=== PATIENT | female | born 1950 | race Caucasian/White ===

== ENCOUNTER → 2024-05-06 14:18 | Outpatient (CLI) | payer MEDICARE, SELFPAY ==
--- NOTE | 2024-05-06 14:20 | DI.RAD.S_ITS ---
PROCEDURE: XR DEXA AXIAL SKELETON INDICATIONS: Screening for osteoporosis COMPARISON: None. FINDINGS: Lumbar Spine: Bone mineral density 0.966 g/cm2, T score -0.7, normal bone mineral density. Left Femoral Neck: Bone mineral density 0.735 g/cm2, T score -1, borderline osteopenia. Right Femoral Neck: Bone mineral density 0.748 g/cm2, T score -0.9, at the lower limit of normal bone mineral density. Fracture Risk Calculation (when applicable): 10-year fracture risk of a major osteoporotic fracture 12 percent and of a hip fracture 1.6-1.8 percent. (T score greater or equal to -1.0 to: NORMAL) (T score from -1.1 to -2.4: OSTEOPENIA) (T score less than or equal to -2.5: OSTEOPOROSIS) IMPRESSION: 1. Normal bone mineral density of the lumbar spine. 2. Right femoral neck bone mineral density at lower limit of normal. 3. Borderline osteopenia at the left femoral neck. Follow-up guidelines as follows: Osteoporosis: Consider a repeat DEXA and Vertebral Fracture Assessment (VFA) exam in 2 years or sooner if medically necessary, to reassess this patient's status. Osteopenia: Consider a repeat DEXA in 2-3 years to reassess this patient's status, or if there is a new clinical indication. Normal: Consider a repeat DEXA in 5 years or sooner, or if there is a new clinical indication. All treatment decisions require clinical judgment and consideration of individual patient factors, including patient preferences, comorbidities, previous drug use, risk factors not captured in the FRAX model (e.g., frailty, falls, vitamin D deficiency, increased bone turnover, interval significant decline in bone density ) and possible under- or over-estimation of fracture risk by FRAX. In addition, the NOF Guide recommends that FDA-approved medical therapies be considered in postmenopausal women and men age >= 50 years with a: * Hip or vertebral (clinical or morphometric) fracture * T-score of <=-2.5 at the spine or hip * Ten-year fracture probability by FRAX of >= 3% for hip fracture or >=20% for major osteoporotic fracture. People with diagnosed cases of osteoporosis or at high risk for fracture should have regular bone mineral density tests. For patients eligible for Medicare, routine testing is allowed once every 2 years. The testing frequency can be increased to one year for patients who have rapidly progressing disease, those who are receiving or discontinuing medical therapy to restore bone mass, or have additional risk factors. Dictated by: Karri Singleton M.D. on 05/06/2024 at 16:22 Approved by: Karri Singleton M.D. on 05/06/2024 at 16:33
== END ==
PROVIDERS: PCP Family Medicine; Referring Provider Family Medicine; Visit Provider Family Medicine
DX: Z78.0 Asymptomatic menopausal state (principal); Z13.820 Encounter for screening for osteoporosis; Z90.710 Acquired absence of both cervix and uterus
CPT/HCPCS: 77080

== ENCOUNTER 2025-02-08 12:37 | Emergency (ER) | payer MEDICARE, SELFPAY ==
[2025-02-08] VITALS (12 sets, daily range): BP systolic 112–171; BP diastolic 56–85; PULSE 51–66; RESP 10–20; O2SAT 96–100
--- NOTE | 2025-02-08 12:44 | DI.CT.S_ITS ---
PROCEDURE: CT HEAD/BRAIN WO CON INDICATIONS: twitching, seizure history TECHNIQUE: Noncontrast 4.5 mm thick angled axial sections acquired from the foramen magnum to the vertex, with coronal and sagittal reformats. For radiation dose reduction, the following was used: automated exposure control, adjustment of mA and/or kV according to patient size. COMPARISON: None. FINDINGS: Image quality: Diagnostic. CSF spaces: Basal cisterns are patent. No extra-axial fluid collections. The ventricles are symmetric in size and shape. Brain: No intracranial bleeds or mass effect. There is cerebral volume loss, with resultant ventricular and sulcal prominence. There are periventricular and deep white matter chronic small vessel ischemic changes. There is intracranial internal carotid artery atherosclerosis. Skull and face: Calvarium and visualized facial bones appear intact, without suspicious lesions. Sinuses: Visualized sinuses and mastoids are clear. IMPRESSION: 1. No acute intracranial pathology. 2. Age related volume loss and mild white matter small vessel chronic ischemic changes. Dictated by: Wilmar Bagley M.D. on 02/08/2025 at 13:29 Approved by: Wilmar Bagley M.D. on 02/08/2025 at 13:30
--- NOTE | 2025-02-08 12:44 | DI.CT.S_ITS ---
PROCEDURE: CT ANGIO HEAD AND NECK INDICATIONS: twitching, seizure TECHNIQUE: After the administration of intravenous contrast, 1 mm thick sections acquired from the aortic arch through the [place]. 3-dimensional yuwaocl-zeloaqgpn-lcwaokldom (MIP) and/or volume rendering reformats were acquired of the central intracranial vasculature and neck separately. For radiation dose reduction, the following was used: automated exposure control, adjustment of mA and/or kV according to patient size. COMPARISON: None. FINDINGS: Image quality: Diagnostic. Cerebral CT Angiogram: Internal carotid arteries: No acute findings. Intracranial ICA are patent with no significant stenosis. No occlusion. No aneurysm. Anterior cerebral arteries: Unremarkable. No significant stenosis. No occlusion. No aneurysm. Middle cerebral arteries: Unremarkable. No significant stenosis. No occlusion. No aneurysm. Posterior cerebral arteries: Unremarkable. No significant stenosis. No occlusion. No aneurysm. Basilar artery: Unremarkable. No significant stenosis. No occlusion. No aneurysm. Vertebral arteries: Unremarkable as visualized. Dural venous sinuses: Unremarkable given phase of enhancement. Other: Arterial phase appearance of the brain parenchyma is unremarkable. Neck CT Angiogram: Internal carotid arteries: Moderate atherosclerotic plaques involving origin of right internal carotid artery is seen with up to 60-70% stenosis. No hemodynamically significant stenosis are noted in left internal carotid artery. No dissection or occlusion. Common carotid arteries: Unremarkable. No significant stenosis. No dissection or occlusion. External carotid arteries: Unremarkable. No occlusion. Vertebral arteries: Atherosclerotic calcifications are noted involving origins of bilateral vertebral arteries with up to 90% stenosis on the left side . No hemodynamically significant stenosis is seen on the right side. No dissection or occlusion. Aortic Arch and Mediastinum: Partially visualized aortic arch unremarkable without evidence of aneurysm. Origins of the great vessels unremarkable. Other: Arterial phase soft tissues of the neck and chest are unremarkable. IMPRESSION: 1. No hemodynamically significant stenosis or aneurysm is seen in the intracranial circulation. 2. Moderate atherosclerotic disease involving right carotid bifurcation/origin of right internal carotid artery with up to 70% stenosis. 3. Up to 90% stenosis involving origin of left vertebral artery. 4. No hemodynamically significant stenosis are noted in rest of the neck arteries. Any quantitative measurements of stenosis were performed using NASCET criteria. Dictated by: Wilmar Bagley M.D. on 02/08/2025 at 13:33 Approved by: Wilmar Bagley M.D. on 02/08/2025 at 13:42
--- NOTE | 2025-02-08 12:44 | EKG_ITS ---
[address] [address] Test Date: 2025-02-08 Pat Name: Gladys Valiente Department: Room: Gender: Female College Administrator: ADRI : 1950 Requested By: Order Number: [id number] Reading MD: Justyn Nielsen MD Measurements Intervals [place] Rate: 54 P: 31 [place]: 228 QRS: 5 QRSD: 136 T: 10 QT: 462 QTc: 438 Interpretive Statements Sinus bradycardia with 1st degree AV block Right bundle branch block NO PRIOR TRACING Electronically Signed On 02-13-2025 7:41:57 PDT by Justyn Nielsen MD
--- NOTE | 2025-02-08 12:46 | ED_ITS ---
HPI - Seizure General Chief Complaint: Seizure Stated Complaint: Seizures Time Seen by Provider: 02/08/25 12:44 Source: patient, EMS, RN notes reviewed and old records reviewed Mode of arrival: EMS Limitations: altered mental status History of Present Illness HPI Narrative: 74-year-old female with known seizure disorder she reports tonic-clonic seizures as well as focal seizures. Patient's been living with friends recently assisting with the caregiving. They note she had her COVID immunization yesterday. Patient indicates she has not had a seizure recently maybe greater than a year. She has her pill bottle she takes zonisamide 100 mg b.i.d. no other antiepileptics. Was acting normally until this morning went to lay down because she felt weird patient's friends note that she has been sort of twitching intermittently we will sometimes not really be conversant with them but in other times is. When they noted 1. Where it seem like maybe she was twitching for a longer period of time but has been brief twitches here and there. EMS notes they did not see any tonic-clonic activity they states she has been slow to respond but has been able to respond and answer questions. They note that she will twitch about every minute or so. No reported drug allergies. No other daily medications reported. Patient lives in [place] and has seen Neurology there. Did see a primary care locally Dr. Michel but no primary care physicians here. Related Data Previous Rx's ?Medication ?Instructions ?Recorded escitalopram oxalate 20 mg tablet 20 mg PO DAILY #90 t abs 04/26/24 levothyroxine 88 mcg tablet 88 mcg PO DAILY #90 tabs 1 06/26/23 zonisamide 100 mg capsule 200 mg (2 x 100 mg) PO BID # 180 04/26/24 caps Allergies Allergy/AdvReac Type Severity Reaction Status Date / Time No Known Drug Allergies Allergy Unverified 02/08/25 12:40 Review of Systems Review of Systems ROS Unobtainable: All systems reviewed & are unremarkable except as noted in HPI and below Patient History Social History Smoking Status: Never smoker Exam Narrative Exam Narrative: GEN: well nourished, well appearing female, alert and oriented x to self and location, answer some questions but is slow to respond, patient appears to be in moderate distress. HEENT: Atraumatic, pupils are equal round reactive to light, extraocular movements are intact, nares are clear, TMs are clear with no fluid, there is no conjunctival pallor. Throat is clear without any exudates, erythema, tonsillar enlargement or uvular deviation, no nystagmus HEART: Regular rate and rhythm without murmur, clicks, rubs. No carotid bruits, pulses are equal in upper and lower extremities LUNGS:Lungs clear to auscultation, no wheezes, rales, crackles, chest moves symmetrically ABD:bowel sounds normal, soft, non-tender, no guarding, rebound, rigidity, no masses noted, no hepatosplenomegaly :No CVA tenderness. MSCL: Non-tender, no muscle atrophy, muscles strength 5/5 upper and lower extremities, no drift with the upper or lower extremities. full range of motion. NEURO:CN 2-12 intact, sensation normal, reflexes 2/4 upper and lower extremities. Patient has not occasional twitch of her extremities but no tonic- clonic seizure activity. Initial Vital Signs Initial Vital Signs: Vital Signs Pulse Oximetry 100 02/08/25 12:45 Course Orders Ordered: ED Orders 02/08/25 12:44 CT angio head and neck Stat CT head/brain wo con Stat EKG-12 Lead Stat 02/08/25 12:56 Complete Blood Count AUTO DIFF Stat Comprehensive Metabolic Panel Stat Ethanol (ETOH) Stat PTT Partial Thromboplastin Chris Stat Prothrombin Time INR Stat Troponin & CK Cardiac Panel Stat Discontinued Medications Sodium Chloride (Normal Saline 0.9%) 1,000 mls @ 1,000 mls/hr IV BOLUS ONE Stop: 02/08/25 13:43 Last Infusion: 02/08/25 15:18 Dose: Infused Documented By: Infusion: 02/08/25 14:17 Dose: 0 mls/hr Documented By: Admin: 02/08/25 13:19 Dose: 1,000 mls/hr Documented By: Levetiracetam 1,000 mg/ Sodium (Chloride) 110 mls @ 440 mls/hr IV NOW ONE Stop: 02/08/25 12:45 Last Infusion: 02/08/25 13:38 Dose: Infused Documented By: Admin: 02/08/25 13:18 Dose: 440 mls/hr Documented By: Ondansetron HCl (Ondansetron 4 Mg/2 Ml Inj) 4 mg IV NOW ONE Stop: 02/08/25 12:45 Last Admin: 02/08/25 13:18 Dose: 4 mg Documented By: Vital Signs Vital signs: Vital Signs - 8 hr 02/08/25 12:45 02/08/25 12:46 02/08/25 12:46 Pulse Rate 55 L Respiratory Rate Blood Pressure 137/77 Pulse Oximetry 100 99 Oxygen Delivery Method 02/08/25 13:00 02/08/25 13:00 02/08/25 13:21 Pulse Rate 55 L 53 L Respiratory Rate 20 12 Blood Pressure 141/85 H Pulse Oximetry 96 100 Oxygen Delivery Method Room Air 02/08/25 13:21 02/08/25 13:30 02/08/25 13:30 Pulse Rate 54 L Respiratory Rate 10 L Blood Pressure 171/72 H 158/72 H Pulse Oximetry 100 Oxygen Delivery Method 02/08/25 13:45 02/08/25 13:45 02/08/25 14:00 Pulse Rate 52 L 56 L Respiratory Rate 11 L 20 Blood Pressure 137/63 Pulse Oximetry 100 98 Oxygen Delivery Method 02/08/25 14:00 02/08/25 14:31 02/08/25 14:45 Pulse Rate 51 L Respiratory Rate 14 Blood Pressure 112/56 L 135/64 Pulse Oximetry 99 Oxygen Delivery Method 02/08/25 14:45 02/08/25 15:00 02/08/25 15:00 Pulse Rate 51 L 53 L Respiratory Rate 13 17 Blood Pressure 119/65 Pulse Oximetry 99 Oxygen Delivery Method Room Air 02/08/25 15:15 02/08/25 15:15 02/08/25 16:19 Pulse Rate 53 L 66 Respiratory Rate 19 16 Blood Pressure 118/69 134/85 Pulse Oximetry 98 99 Oxygen Delivery Method Room Air Room Air MDM - Seizure Lab Data 02/08/25 12:56 02/08/25 12:56 Labs: Lab Results 02/08/25 02/08/25 Range/Units 12:51 12:56 WBC 5.9 (4.5-11.0) X10^3/uL RBC 4.33 (4.0-5.2) X10^6/uL Hgb 13.5 (12.0-16.0) g/dL Hct 40.9 (36-46) % MCV 94.5 (80-100) fL MCH 31.2 (26-34) PG MCHC 33.1 (30-36) % RDW 13.0 (11.6-14.8) % Plt Count 208 (150-400) X10^3/uL Neut % (Auto) 58.9 (50-75) % Lymph % (Auto) 25.8 (25-40) % [place] % (Auto) 8.3 (3-14) % Eos % (Auto) 6.1 H (2-4) % Baso % (Auto) 0.9 (0-2) % Neut # (Auto) 3500 (6185-8916) /uL Lymph # (Auto) 1500 (2592-1295) /uL [place] # (Auto) 500 (0-900) /uL Eos # (Auto) 400 (0-450) /uL Baso # (Auto) 100 (0-100) /uL PT 11.2 (9.4-12.5) SECONDS INR 1.0 (0.9-1.3) APTT 30 (25.1-36.5) SECONDS Sodium 137 (137-145) mmol/L Potassium 3.8 (3.4-5.1) mmol/L Chloride 104 (98-107) mmol/L Carbon Dioxide 24 (22-32) mmol/L BUN 22 H (7-17) mg/dL Creatinine 0.99 (0.52-1.04) mg/dL Estimated GFR > 60 (>60) mL/min BUN/Creatinine Ratio 22.2 H (6-22) Glucose 87 (70-99) mg/dL POC Whole Bld Glucose 91 (70-99) mg/dL Calcium 9.3 (8.4-10.2) mg/dL Total Bilirubin 0.6 (0.2-1.3) mg/dL AST 32 (14-36) IU/L ALT 30 (<35) IU/L Alkaline Phosphatase 55 (38-126) U/L Total Creatine Kinase 62 (30-135) U/L Troponin I < 0.012 (0.01-0.034) ng/mL Total Protein 7.7 (6.3-8.2) g/dL Albumin 4.4 (3.5-5.0) g/dL Globulin 3.3 (1.7-4.1) g/dL Albumin/Globulin Ratio 1.3 (1.0-2.8) Ethyl Alcohol < 10 (<10) mg/dL Point of Care Testing Glucose POC 91 ECG Data Attestation: I personally reviewed and interpreted this ECG as follows: Prior ECG tracings: not available for review Interpretation: EKG sinus bradycardia with first-degree AV block rate of 54 [place] 228 QRS of 136 QTC 438, no acute ST elevation depression. MDM Narrative Medical decision making narrative: Labs labs show normal CBC, coags are appropriate electrolytes are normal BUN 22 creatinine 0.99 glucose is 87 LFTs are negative troponins less than 0.012. ETOH is less than 10. EKG sinus bradycardia with first-degree AV block rate of 54 [place] 228 QRS of 136 QTC 438, no acute ST elevation depression. No prior for comparison Urine Head CT shows no acute intracranial pathology age-related volume loss and mild white matter small-vessel chronic ischemic changes. CT head and neck angio shows no acute hemodynamic significant stenosis or aneurysm seen intracranial circulation. Moderate atherosclerotic disease involving right carotid bifurcation origin of right internal carotid up to 70% stenosis. To 90% stenosis involving origin of left vertebral artery. No significant stenosis noted in the rest of the neck arteries. Patient received fluids, did receive a dose of Keppra IV. Patient had improvement of symptoms no longer twitching she feels back to baseline. Suspect she maybe having focal seizure activity. Symptoms did not can not seem consistent with stroke. No infectious changes appreciated. Patient notes no changes to medications changes. Patient is able to give a urine sample but is lost. Patient does not wish to wait any longer. She does have a local PCP that she can follow up with. She elects to reach out to her neurology team. She does not wish for me to call at this time. She states her neurologist is retired but the there was 1 covering that she can talk to. I did offer to call. But patient politely refuses. Friend is at bedside for these discussions. Patient's mentation appears to have cleared. I do suspect she would likely having focal seizure activity. Reviewed her past history noted her changes on her CT angio she states she has been told this in the past she has never started a statin decide being recommended to do so. She is aware of the risks for potential stroke. She also did for his having call to Neurology. She would like to discharge. She did stay little bit longer to trying to give a urine sample but was unable to obtain and patient elected to discharge home. She is alert, appropriate does have friend at bedside who she is currently staying with discussed return precautions. She does have primary care follow up locally but not Neurology follow up locally. Discharge Plan Departure Patient Disposition: Home Clinical Impression: Seizure disorder Instructions: DI for Seizure Disorder -- Adult Activity Restrictions/Additional Instructions: I suspect you were having a focal seizure today. Talk with your physicians about adjusting your medication. I did also talk with your physician about having a urine sample checked for infection as this is sometimes can lower your seizure threshold. Your workup today did not show any new clear changes does show some narrowing of the vessels in your neck, sounds like you have had discussions with your physicians about this and you should be on medications such as a statin or have follow up to make sure this isn't rapidly worsening as it increases your risk of stroke. Please return for any new or recurrent symptoms, seizure activity, changes to mentation, fevers, persistent vomiting, any difficulty with movement or ambulation or other new or concerning changes. Prescriptions: No Action escitalopram oxalate 20 mg tablet 20 mg PO DAILY Qty: 90 3RF levothyroxine 88 mcg tablet 88 mcg PO DAILY Qty: 90 3RF zonisamide 100 mg capsule 200 mg PO BID Qty: 180 3RF Rx Instructions: Must be [facility] Referrals: Mary Kay Espinoza DO [Primary Care Provider, Family Practice] Stand Alone Forms: Patient Portal/API
[2025-02-08 13:00] LABS: Add Manual Diff / Slide Review NO; Hematocrit 40.9 % (36-46); Hemoglobin 13.5 g/dL (12.0-16.0); Lymphocytes Absolute Auto 1500 /uL (1100-4500); Mean Corpuscular HGB Conc 33.1 % (30-36); Mean Corpuscular Hemoglobin 31.2 PG (26-34); Mean Corpuscular Volume 94.5 fL (80-100); Platelet Count 208 X10^3/uL (150-400)
[2025-02-08 13:08] LABS: INR 1.0 (0.9-1.3); Prothrombin Time 11.2 SECONDS (9.4-12.5)
[2025-02-08 13:10] LABS: PTT Partial Thromboplastin Tim 30 SECONDS (25.1-36.5)
[2025-02-08 13:12] LABS: Alanine Aminotransferase 30 IU/L (<35); Albumin 4.4 g/dL (3.5-5.0); Albumin Globulin Ratio 1.3 (1.0-2.8); Alkaline Phosphatase 55 U/L (38-126); Blood Urea Nitrogen 22 mg/dL (7-17); Calcium 9.3 mg/dL (8.4-10.2); Carbon Dioxide 24 mmol/L (22-32); Chloride 104 mmol/L (98-107); Creatine Kinase 62 U/L (30-135); Estimated Glomerular Filt Rate > 60 mL/min (>60); Ethanol (ETOH) < 10 mg/dL (<10); Globulin 3.3 g/dL (1.7-4.1); Glucose 87 mg/dL (70-99); HEMOLYSIS < 15 (0-50); Potassium 3.8 mmol/L (3.4-5.1); Sodium 137 mmol/L (137-145); Total Protein 7.7 g/dL (6.3-8.2)
[2025-02-08] MEDS: ONDANSETRON 4 MG/2 ML INJ IV (13:18)
[2025-02-08] MEDS: SODIUM CHLORIDE 0.9% 1,000 ML 1000 ML IV (13:19)
[2025-02-08 13:24] LABS: Troponin I < 0.012 ng/mL (0.01-0.034)
--- NOTE | 2025-02-08 13:24 | PC.NURSE ---
Seizure pads placed on gurney. Pt has upper and lower extremity spasms occurring every two to three minutes. Pt is slow to respond to questions. Is oriented to self, does not know date or time.
--- NOTE | 2025-02-08 14:01 | PC.NURSE ---
Pt awake and alert. States that she wants to go home now. Pt is mentating well and is oriented X 4.
== END 2025-02-08 16:21 | disposition home or self-care (01) ==
PROVIDERS: Emergency Provider Emergency Medicine; PCP Family Medicine
DX: G40.109 Localization-related (focal) (partial) symptomatic epilepsy and epileptic syndromes with simple partial seizures, not intractable, without status epilepticus (principal); R00.1 Bradycardia, unspecified; I44.0 Atrioventricular block, first degree
CPT/HCPCS: 36415; 70450; 70496; 70498; 80053; 80320; 82550; 82962; 84484; 85025; 85610; 85730; 93005; 96365; 96375; 99284; J1953; J2405; Q9967

== ENCOUNTER → 2025-04-03 10:50 | Outpatient (CLI) | payer MEDICARE, SELFPAY ==
[2025-04-03 12:54] LABS: Cholesterol 120 mg/dL (140-199); HDL Cholesterol 61 mg/dL (40-60); Triglycerides 119 mg/dL (35-150)
[2025-04-03 13:23] LABS: TSH w/ Reflex to FT4 0.09 uIU/mL (0.47-4.68)
[2025-04-03 13:49] LABS: Free T4, Direct Thyroxine 1.19 ng/dL (0.78-2.19)
== END ==
PROVIDERS: PCP Family Medicine; Referring Provider Family Medicine; Visit Provider Physician Assistant
DX: E03.9 Hypothyroidism, unspecified (principal); G40.909 Epilepsy, unspecified, not intractable, without status epilepticus; E78.00 Pure hypercholesterolemia, unspecified
CPT/HCPCS: 36415; 80061; 84439; 84443

== ENCOUNTER → 2025-04-11 12:37 | Outpatient (CLI) | payer MEDICARE, SELFPAY | LOC: ECHO 12:38 | PROVIDERS: PCP Family Medicine; Referring Provider Family Medicine; Visit Provider Family Medicine | DX: I65.21 Occlusion and stenosis of right carotid artery (principal); I65.02 Occlusion and stenosis of left vertebral artery | CPT/HCPCS: 93306 ==